=== PATIENT | female | born 1970 | race Caucasian/White ===

== ENCOUNTER 2023-07-29 19:43 | Inpatient (IN) | payer MEDICARE, OTHER ==
[~2023-07-29] VITALS: Ht 162.6 cm; Wt 63.3 kg
[2023-07-29] MEDS ORDERED: CARV12.52 PO (21:48)
[2023-07-29] MEDS ORDERED: TICA90TA PO (21:48)
[2023-07-29] MEDS ORDERED: ISOS60TA72 PO (21:48)
[2023-07-29] MEDS ORDERED: ASPI81TA31 PO (21:48)
[2023-07-29] MEDS ORDERED: PANT40TA49 PO (21:48)
[2023-07-29] MEDS ORDERED: SUCR1TAB PO (21:48)
[2023-07-29] MEDS ORDERED: LEVE500T83 PO (21:48)
[2023-07-29] MEDS ORDERED: DOCU100T2 PO (21:48)
[2023-07-29] MEDS ORDERED: ESCI20TA44 PO (21:48)
[2023-07-29] MEDS ORDERED: IV NORMAL SALINE 1000 ML BAG IV ONE (22:30)
[2023-07-29 22:49] LABS: BASOPHILS # (AUTO) 0.1 K/UL (0.0-0.2); EOSINOPHILS # (AUTO) 0.1 K/uL (0.0-0.7); EOSINOPHILS % (AUTO) 2.4 % (0.0-7.0); HEMATOCRIT 30.2 % (31.2-41.9); HEMOGLOBIN 9.8 g/dL (10.9-14.3); LYMPHOCYTES # (AUTO) 0.9 K/uL (0.8-4.8); LYMPHOCYTES % (AUTO) 23.9 % (20.5-51.5); MEAN CORPUSCULAR HEMOGLOBIN 31.2 uug (24.7-32.8); MEAN CORPUSCULAR HGB CONC 32 g/dL (32.3-35.6); MEAN CORPUSCULAR VOLUME 96.3 fL (75.5-95.3); MONOCYTES # (AUTO) 0.3 K/uL (0.1-1.30); MONOCYTES % (AUTO) 7.7 % (0.0-11.0); NEUTROPHILS # (AUTO) 2.3 K/uL (1.8-8.9); PLATELET COUNT (AUTO) 273 K/uL (179-408); RED BLOOD CELL COUNT(AUTO) 3.14 MIL/uL (3.63-4.92); RED CELL DISTRIBUTION WIDTH 16.7 % (12.3-17.7); WHITE BLOOD COUNT (AUTO) 3.7 K/uL (3.8-11.8)
[2023-07-29 22:51] LABS: DIFFERENTIAL COMMENT 1
[2023-07-29 23:09] LABS: ALANINE AMINOTRANSFERASE 18 U/L (14-59); ALBUMIN 3.1 g/dL (3.4-5.0); ALKALINE PHOSPHATASE 133 U/L (50-136); ASPARTATE AMINOTRANSFERASE 13 U/L (15-37); BILIRUBIN,TOTAL 0.3 mg/dL (0.2-1.0); CALCIUM 9.7 mg/dL (8.5-10.1); CARBON DIOXIDE 26 mmol/L (21-32); CHLORIDE 96 mmol/L (98-107); CREATININE 5.1 mg/dL (0.6-1.3); NT-PRO BNP 4673 pg/mL (0-125); SODIUM SERUM 131 mmol/L (136-145); TOTAL PROTEIN, SERUM 7.1 g/dL (6.4-8.2); UREA NITROGEN, BLOOD 30 mg/dL (7-18)
[2023-07-29 23:12] LABS: POTASSIUM 6.3 mmol/L (3.5-5.1)
[2023-07-29 23:13] LABS: ACETAMINOPHEN < 2.0 ug/mL (10-30); GLUCOSE 435 mg/dL (74-106)
[2023-07-29 23:14] LABS: AMMONIA < 10 umol/L (11-32)
[2023-07-29 23:18] LABS: ACETONE, SERUM TRACE (NEGATIVE)
[2023-07-30] MEDS ORDERED: KETOROLAC TROMETHAMINE 30 MG INJ IVP ONE
[2023-07-30] MEDS ORDERED: KETOROLAC TROMETHAMINE 30 MG INJ ONE (00:03)
[2023-07-30] MEDS ORDERED: CALCIUM GLUCONATE 1 GM/10 ML VIAL IV ONE (00:13)
[2023-07-30] MEDS ORDERED: LORAZEPAM 2 MG/1 ML VIAL ONE (00:13)
[2023-07-30] MEDS ORDERED: SODIUM BICARBONATE 8.4% 50 MEQ/50 ML DISP.SYRIN IV ONE ×2 (00:13→00:15)
[2023-07-30] MEDS ORDERED: CALCIUM GLUCONATE IV 1 GM in IV DEXTROSE 5% 50 ML IV ONE (00:15)
[2023-07-30] MEDS ORDERED: SODIUM POLYSTYRENE SULFONATE 15 G/60 ML LIQUID UDC PO ONE (00:15)
[2023-07-30] MEDS ORDERED: INSULIN REGULAR, HUMAN 300 UNIT/3 ML VIAL IV ONE (00:15)
[2023-07-30] MEDS ORDERED: LORAZEPAM 2 MG/1 ML VIAL IV ONE (00:15)
[2023-07-30] MEDS ORDERED: INSULIN REGULAR, HUMAN 300 UNIT/3 ML VIAL ONE ×2 (00:49→00:50)
[2023-07-30] MEDS ORDERED: SODIUM POLYSTYRENE SULFONATE 15 G/60 ML LIQUID UDC ONE (00:49)
[2023-07-30] MEDS ORDERED: MAGNESIUM HYDROXIDE 30 ML LIQUID UDC PO PRN (01:45)
[2023-07-30] MEDS ORDERED: REMEDY ESSENTIAL ZINC PASTE 113 GM TP PRN (01:45)
[2023-07-30] MEDS ORDERED: DEXTROSE 50% 50 ML DISP.SYRIN IV PRN (01:45)
[2023-07-30 05:10] VITALS: BP 157/69; TEMP 97.4; O2SAT 93
[2023-07-30] MEDS: PANTOPRAZOLE SODIUM 40 MG TABLET.DR PO SCH (06:58)
[2023-07-30] MEDS: BLOOD SUGAR DIAGNOSTIC 1 EACH STRIP VI SCH ×4 (06:58→21:17)
[2023-07-30] MEDS: HEPARIN SODIUM,PORCINE 5,000 UNITS/ML VIAL SQ SCH ×2 (09:28→21:09)
[2023-07-30] MEDS ORDERED: ISOS30TA86 PO (09:38)
[2023-07-30 09:39] LABS: BASOPHILS % (AUTO) 1.5 % (0.0-2.0); EOSINOPHILS # (AUTO) 0.1 K/uL (0.0-0.7); EOSINOPHILS % (AUTO) 3.3 % (0.0-7.0); HEMATOCRIT 29.1 % (31.2-41.9); HEMOGLOBIN 9.3 g/dL (10.9-14.3); LYMPHOCYTES % (AUTO) 34.2 % (20.5-51.5); MEAN CORPUSCULAR HEMOGLOBIN 30.7 uug (24.7-32.8); MEAN CORPUSCULAR HGB CONC 32 g/dL (32.3-35.6); MEAN CORPUSCULAR VOLUME 96.4 fL (75.5-95.3); MONOCYTES # (AUTO) 0.3 K/uL (0.1-1.30); NEUTROPHILS # (AUTO) 1.5 K/uL (1.8-8.9); PLATELET COUNT (AUTO) 271 K/uL (179-408); RED BLOOD CELL COUNT(AUTO) 3.02 MIL/uL (3.63-4.92); RED CELL DISTRIBUTION WIDTH 17.1 % (12.3-17.7)
[2023-07-30 09:50] LABS: DIFFERENTIAL COMMENT 1
[2023-07-30 10:01] LABS: ALBUMIN 2.9 g/dL (3.4-5.0); BILIRUBIN,DIRECT 0.1 mg/dL (0.0-0.2); BILIRUBIN,TOTAL 0.3 mg/dL (0.2-1.0); CALCIUM 9.7 mg/dL (8.5-10.1); CREATININE 5.7 mg/dL (0.6-1.3); MAGNESIUM 2.5 mg/dL (1.8-2.4); PHOSPHOROUS 7.3 mg/dL (2.5-4.9); TOTAL PROTEIN, SERUM 6.6 g/dL (6.4-8.2)
[2023-07-30 11:11] LABS: POTASSIUM 6.4 mmol/L (3.5-5.1)
[2023-07-30 11:29] VITALS: BP 180/90; TEMP 98.6; O2SAT 99
[2023-07-30] MEDS: INSULIN REGULAR, HUMAN 300 UNIT/3 ML VIAL SQ PRN (12:11)
[2023-07-30] MEDS ORDERED: Medication Not On Formulary EA (Levetiracetam 500 MG) PO SCH (12:15)
[2023-07-30] MEDS: CARVEDILOL 12.5 MG TABLET PO SCH ×2 (12:56→17:30)
[2023-07-30] MEDS: ISOSORBIDE MONONITRATE 30 MG TAB.SR.24H PO SCH (12:56)
[2023-07-30] MEDS: levETIRAcetam 500 MG TABLET PO SCH ×2 (13:35→21:07)
[2023-07-30] MEDS: DOCUSATE SODIUM 100 MG CAPSULE PO SCH (13:35)
[2023-07-30 13:40] VITALS: BP 144/66; TEMP 98.1; O2SAT 98
[2023-07-30 14:40] VITALS: BP 153/70; TEMP 97.5; O2SAT 98
[2023-07-30 16:06] VITALS: BP 146/73; TEMP 97.6; O2SAT 98
[2023-07-30] MEDS: SUCRALFATE 1 G TABLET PO SCH (17:31)
[2023-07-30 19:15] VITALS: BP 130/62; TEMP 98.3; O2SAT 97
[2023-07-30] MEDS: INSULIN REGULAR, HUMAN 300 UNITS/3 ML VIAL SQ PRN (21:21)
[2023-07-31 00:30] VITALS: BP 125/60; TEMP 98.8; O2SAT 97
[2023-07-31 04:00] VITALS: BP 156/71; TEMP 97.9; O2SAT 94
[2023-07-31] MEDS: PANTOPRAZOLE SODIUM 40 MG TABLET.DR PO SCH (06:31)
[2023-07-31] MEDS: SUCRALFATE 1 G TABLET PO SCH ×3 (06:31→17:05)
[2023-07-31] MEDS: BLOOD SUGAR DIAGNOSTIC 1 EACH STRIP VI SCH ×7 (06:37→21:06)
[2023-07-31] MEDS: INSULIN REGULAR, HUMAN 300 UNIT/3 ML VIAL SQ PRN ×3 (07:45→17:08)
[2023-07-31 08:11] LABS: HEPATITIS B SURFACE AB, QUAL Reactive (.); HEPATITIS B SURFACE AG Negative (Negative)
[2023-07-31] MEDS ORDERED: Medication Not On Formulary EA (Docusate Sodium 100 MG) PO SCH (09:00)
[2023-07-31] MEDS: HEPARIN SODIUM,PORCINE 5,000 UNITS/ML VIAL SQ SCH ×2 (09:07→20:57)
[2023-07-31] MEDS: levETIRAcetam 500 MG TABLET PO SCH ×2 (09:08→20:58)
[2023-07-31] MEDS: DOCUSATE SODIUM 100 MG CAPSULE PO SCH (09:08)
[2023-07-31] MEDS: CARVEDILOL 12.5 MG TABLET PO SCH ×2 (09:13→17:05)
[2023-07-31] MEDS: ESCITALOPRAM OXALATE 10 MG TABLET PO SCH (09:14)
[2023-07-31] MEDS: ISOSORBIDE MONONITRATE 30 MG TAB.SR.24H PO SCH (09:14)
[2023-07-31 09:16] LABS: BASOPHILS # (AUTO) 0.1 K/UL (0.0-0.2); BASOPHILS % (AUTO) 2.4 % (0.0-2.0); EOSINOPHILS # (AUTO) 0.1 K/uL (0.0-0.7); EOSINOPHILS % (AUTO) 2.9 % (0.0-7.0); HEMATOCRIT 28.5 % (31.2-41.9); HEMOGLOBIN 9.1 g/dL (10.9-14.3); LYMPHOCYTES # (AUTO) 0.9 K/uL (0.8-4.8); LYMPHOCYTES % (AUTO) 33.2 % (20.5-51.5); MEAN CORPUSCULAR HEMOGLOBIN 30.9 uug (24.7-32.8); MEAN CORPUSCULAR HGB CONC 32 g/dL (32.3-35.6); MEAN CORPUSCULAR VOLUME 96.7 fL (75.5-95.3); MONOCYTES # (AUTO) 0.3 K/uL (0.1-1.30); MONOCYTES % (AUTO) 11.2 % (0.0-11.0); NEUTROPHILS # (AUTO) 1.4 K/uL (1.8-8.9); NEUTROPHILS % (AUTO) 50.3 % (38.5-71.5); PLATELET COUNT (AUTO) 245 K/uL (179-408); RED BLOOD CELL COUNT(AUTO) 2.95 MIL/uL (3.63-4.92); RED CELL DISTRIBUTION WIDTH 16.6 % (12.3-17.7); WHITE BLOOD COUNT (AUTO) 2.7 K/uL (3.8-11.8)
[2023-07-31 09:31] LABS: CALCIUM 9.2 mg/dL (8.5-10.1); CREATININE 4.7 mg/dL (0.6-1.3); MAGNESIUM 2.4 mg/dL (1.8-2.4); PHOSPHOROUS 6.2 mg/dL (2.5-4.9); POTASSIUM 5.3 mmol/L (3.5-5.1)
[2023-07-31 09:37] LABS: DIFFERENTIAL COMMENT 1
[2023-07-31 11:31] VITALS: BP 117/60; TEMP 98.5; O2SAT 95
[2023-07-31] MEDS: ALPRAZOLAM 0.25 MG TABLET PO PRN ×2 (11:33→21:53)
[2023-07-31 15:34] VITALS: BP 127/60; TEMP 98.4; O2SAT 95
[2023-07-31 20:00] VITALS: BP 132/60; TEMP 98; O2SAT 96
[2023-07-31] MEDS: INSULIN REGULAR, HUMAN 300 UNITS/3 ML VIAL SQ PRN (21:08)
[2023-08-01 04:00] VITALS: BP 144/68; TEMP 98.2; O2SAT 97
[2023-08-01] MEDS: ACETAMINOPHEN 325 MG TABLET PO PRN ×2 (04:16→21:15)
[2023-08-01] MEDS: BLOOD SUGAR DIAGNOSTIC 1 EACH STRIP VI SCH ×5 (06:13→21:16)
[2023-08-01] MEDS: INSULIN REGULAR, HUMAN 300 UNIT/3 ML VIAL SQ PRN ×2 (06:14→16:58)
[2023-08-01] MEDS: PANTOPRAZOLE SODIUM 40 MG TABLET.DR PO SCH (06:27)
[2023-08-01] MEDS ORDERED: ONDANSETRON HCL 4 MG TABLET PO PRN (06:30)
[2023-08-01 07:36] LABS: BASOPHILS # (AUTO) 0.1 K/UL (0.0-0.2); EOSINOPHILS # (AUTO) 0.1 K/uL (0.0-0.7); EOSINOPHILS % (AUTO) 3.1 % (0.0-7.0); HEMATOCRIT 29.9 % (31.2-41.9); HEMOGLOBIN 9.5 g/dL (10.9-14.3); LYMPHOCYTES # (AUTO) 0.6 K/uL (0.8-4.8); LYMPHOCYTES % (AUTO) 21.3 % (20.5-51.5); MEAN CORPUSCULAR HEMOGLOBIN 30.9 uug (24.7-32.8); MEAN CORPUSCULAR HGB CONC 32 g/dL (32.3-35.6); MEAN CORPUSCULAR VOLUME 97.7 fL (75.5-95.3); MONOCYTES # (AUTO) 0.3 K/uL (0.1-1.30); MONOCYTES % (AUTO) 8.7 % (0.0-11.0); NEUTROPHILS # (AUTO) 1.9 K/uL (1.8-8.9); NEUTROPHILS % (AUTO) 64.9 % (38.5-71.5); PLATELET COUNT (AUTO) 211 K/uL (179-408); RED BLOOD CELL COUNT(AUTO) 3.06 MIL/uL (3.63-4.92); RED CELL DISTRIBUTION WIDTH 16.7 % (12.3-17.7)
[2023-08-01 07:49] LABS: DIFFERENTIAL COMMENT 1
[2023-08-01 07:54] LABS: CALCIUM 9.3 mg/dL (8.5-10.1); CREATININE 5.8 mg/dL (0.6-1.3); MAGNESIUM 2.5 mg/dL (1.8-2.4); PHOSPHOROUS 6.2 mg/dL (2.5-4.9); POTASSIUM 5.8 mmol/L (3.5-5.1)
[2023-08-01 08:06] LABS: HEPATITIS B CORE AB, IgM Negative (Negative); HEPATITIS B CORE AB, TOTAL Negative (Negative); HEPATITIS B SURFACE AB, QUAL Reactive (.); HEPATITIS B SURFACE AG Negative (Negative); HEPATITIS C VIRUS ANTIBODY Non Reactive (Non Reactive)
[2023-08-01] MEDS: SUCRALFATE 1 G TABLET PO SCH ×3 (08:58→16:43)
[2023-08-01] MEDS: ESCITALOPRAM OXALATE 10 MG TABLET PO SCH (08:58)
[2023-08-01] MEDS: DOCUSATE SODIUM 100 MG CAPSULE PO SCH (08:58)
[2023-08-01] MEDS: levETIRAcetam 500 MG TABLET PO SCH ×2 (08:58→21:15)
[2023-08-01] MEDS: HEPARIN SODIUM,PORCINE 5,000 UNITS/ML VIAL SQ SCH ×2 (09:00→21:16)
[2023-08-01] MEDS: CARVEDILOL 12.5 MG TABLET PO SCH ×2 (09:01→16:43)
[2023-08-01] MEDS: ISOSORBIDE MONONITRATE 30 MG TAB.SR.24H PO SCH (09:01)
[2023-08-01 09:11] VITALS: BP 183/79; TEMP 98; O2SAT 94
[2023-08-01] MEDS: diphenhydrAMINE 50 MG/1 ML VIAL IV PRN ×2 (09:49→22:37)
[2023-08-01 11:42] VITALS: BP 135/70; TEMP 97.6; O2SAT 96
[2023-08-01] MEDS: ONDANSETRON 4 MG/2 ML VIAL IV PRN (14:48)
[2023-08-01 20:30] VITALS: BP 174/75; TEMP 98.3; O2SAT 94
[2023-08-01] MEDS: INSULIN GLARGINE,HUM 300 UNITS/3 ML CARTRIDGE SQ SCH (21:15)
[2023-08-02 00:12] VITALS: BP 157/76; TEMP 98.2; O2SAT 94
[2023-08-02 04:20] VITALS: BP 169/68; TEMP 98.4; O2SAT 91
[2023-08-02] MEDS: PANTOPRAZOLE SODIUM 40 MG TABLET.DR PO SCH (06:34)
[2023-08-02] MEDS: SUCRALFATE 1 G TABLET PO SCH ×3 (06:34→16:29)
[2023-08-02] MEDS: BLOOD SUGAR DIAGNOSTIC 1 EACH STRIP VI SCH ×4 (06:35→21:09)
[2023-08-02 08:00] VITALS: BP 178/78; TEMP 98.4; O2SAT 96
[2023-08-02] MEDS: ESCITALOPRAM OXALATE 10 MG TABLET PO SCH (08:29)
[2023-08-02] MEDS: ISOSORBIDE MONONITRATE 30 MG TAB.SR.24H PO SCH (08:30)
[2023-08-02] MEDS: levETIRAcetam 500 MG TABLET PO SCH ×2 (08:30→20:54)
[2023-08-02] MEDS: CARVEDILOL 12.5 MG TABLET PO SCH ×2 (08:30→16:33)
[2023-08-02] MEDS: HEPARIN SODIUM,PORCINE 5,000 UNITS/ML VIAL SQ SCH ×2 (08:31→20:58)
[2023-08-02] MEDS: DOCUSATE SODIUM 100 MG CAPSULE PO SCH (08:31)
[2023-08-02] MEDS: INSULIN REGULAR, HUMAN 300 UNIT/3 ML VIAL SQ PRN ×2 (08:33→11:16)
[2023-08-02] MEDS ORDERED: hydrALAZINE HCL 20 MG/1 ML VIAL IV PRN (10:15)
[2023-08-02] MEDS: AMLODIPINE 5 MG TABLET PO SCH (10:57)
[2023-08-02] MEDS: ONDANSETRON 4 MG/2 ML VIAL IV PRN (11:19)
[2023-08-02 11:39] VITALS: BP 160/69; TEMP 98.4; O2SAT 95
[2023-08-02] MEDS: diphenhydrAMINE 50 MG/1 ML VIAL IV PRN ×2 (12:22→21:30)
[2023-08-02 16:26] VITALS: BP 138/60; TEMP 97.5; O2SAT 95
[2023-08-02] MEDS: ALPRAZOLAM 0.25 MG TABLET PO PRN (16:51)
[2023-08-02 20:35] VITALS: BP 141/64; TEMP 98.1; O2SAT 95
[2023-08-02] MEDS: INSULIN GLARGINE,HUM 300 UNITS/3 ML CARTRIDGE SQ SCH (21:00)
[2023-08-03 00:54] VITALS: BP 108/72; TEMP 98.6; O2SAT 96
[2023-08-03 04:50] VITALS: BP 181/72; TEMP 98.9; O2SAT 94
[2023-08-03] MEDS: PANTOPRAZOLE SODIUM 40 MG TABLET.DR PO SCH (06:34)
[2023-08-03] MEDS: SUCRALFATE 1 G TABLET PO SCH ×3 (06:34→16:25)
[2023-08-03] MEDS: BLOOD SUGAR DIAGNOSTIC 1 EACH STRIP VI SCH ×4 (06:49→20:30)
[2023-08-03 06:55] LABS: BASOPHILS % (AUTO) 1.1 % (0.0-2.0); EOSINOPHILS # (AUTO) 0.1 K/uL (0.0-0.7); EOSINOPHILS % (AUTO) 4.3 % (0.0-7.0); HEMOGLOBIN 9.9 g/dL (10.9-14.3); MEAN CORPUSCULAR HEMOGLOBIN 30.8 uug (24.7-32.8); MEAN CORPUSCULAR HGB CONC 32 g/dL (32.3-35.6); MEAN CORPUSCULAR VOLUME 96.4 fL (75.5-95.3); MONOCYTES # (AUTO) 0.4 K/uL (0.1-1.30); MONOCYTES % (AUTO) 12.2 % (0.0-11.0); NEUTROPHILS # (AUTO) 1.8 K/uL (1.8-8.9); NEUTROPHILS % (AUTO) 53.4 % (38.5-71.5); PLATELET COUNT (AUTO) 193 K/uL (179-408); RED BLOOD CELL COUNT(AUTO) 3.22 MIL/uL (3.63-4.92); RED CELL DISTRIBUTION WIDTH 15.7 % (12.3-17.7); WHITE BLOOD COUNT (AUTO) 3.3 K/uL (3.8-11.8)
[2023-08-03 07:10] LABS: DIFFERENTIAL COMMENT 1
[2023-08-03 07:16] LABS: CALCIUM 9.1 mg/dL (8.5-10.1); CREATININE 6.2 mg/dL (0.6-1.3); MAGNESIUM 2.6 mg/dL (1.8-2.4); PHOSPHOROUS 6.5 mg/dL (2.5-4.9); POTASSIUM 5.4 mmol/L (3.5-5.1)
[2023-08-03] MEDS: INSULIN REGULAR, HUMAN 300 UNIT/3 ML VIAL SQ PRN ×2 (08:08→17:29)
[2023-08-03] MEDS: DOCUSATE SODIUM 100 MG CAPSULE PO SCH (08:34)
[2023-08-03] MEDS: ESCITALOPRAM OXALATE 10 MG TABLET PO SCH (08:34)
[2023-08-03] MEDS: levETIRAcetam 500 MG TABLET PO SCH ×2 (08:34→20:59)
[2023-08-03] MEDS: HEPARIN SODIUM,PORCINE 5,000 UNITS/ML VIAL SQ SCH ×2 (08:35→21:02)
[2023-08-03] MEDS: AMLODIPINE 5 MG TABLET PO SCH (08:36)
[2023-08-03] MEDS: ISOSORBIDE MONONITRATE 30 MG TAB.SR.24H PO SCH (08:37)
[2023-08-03] MEDS: CARVEDILOL 12.5 MG TABLET PO SCH ×2 (08:37→16:25)
[2023-08-03] MEDS: ONDANSETRON 4 MG/2 ML VIAL IV PRN ×2 (10:28→10:46)
[2023-08-03 12:00] VITALS: BP 118/68; TEMP 97.9; O2SAT 95
[2023-08-03] MEDS ORDERED: INSULIN REGULAR, HUMAN 300 UNITS/3 ML VIAL SQ PRN (14:30)
[2023-08-03 15:46] VITALS: BP 134/66; TEMP 97.3; O2SAT 97
[2023-08-03] MEDS: diphenhydrAMINE 50 MG/1 ML VIAL IV PRN (18:39)
[2023-08-03 20:00] VITALS: BP 134/67; TEMP 98
[2023-08-03] MEDS ORDERED: INSULIN GLARGINE,HUM 300 UNITS/3 ML CARTRIDGE SQ SCH ×2 (21:00)
[2023-08-03] MEDS ORDERED: diphenhydrAMINE 50 MG/1 ML VIAL IV ONE (22:00)
[2023-08-04] VITALS: BP 128/64; TEMP 97.8; O2SAT 96
[2023-08-04] MEDS: SUCRALFATE 1 G TABLET PO SCH ×3 (06:31→16:27)
[2023-08-04] MEDS: PANTOPRAZOLE SODIUM 40 MG TABLET.DR PO SCH (06:33)
[2023-08-04] MEDS: BLOOD SUGAR DIAGNOSTIC 1 EACH STRIP VI SCH ×3 (06:54→16:36)
[2023-08-04 07:12] LABS: BASOPHILS % (AUTO) 1.1 % (0.0-2.0); EOSINOPHILS # (AUTO) 0.2 K/uL (0.0-0.7); EOSINOPHILS % (AUTO) 6.2 % (0.0-7.0); HEMOGLOBIN 9.6 g/dL (10.9-14.3); LYMPHOCYTES # (AUTO) 1.2 K/uL (0.8-4.8); LYMPHOCYTES % (AUTO) 34.3 % (20.5-51.5); MEAN CORPUSCULAR HEMOGLOBIN 30.6 uug (24.7-32.8); MEAN CORPUSCULAR HGB CONC 32 g/dL (32.3-35.6); MEAN CORPUSCULAR VOLUME 94.9 fL (75.5-95.3); MONOCYTES # (AUTO) 0.4 K/uL (0.1-1.30); MONOCYTES % (AUTO) 11.1 % (0.0-11.0); NEUTROPHILS # (AUTO) 1.6 K/uL (1.8-8.9); NEUTROPHILS % (AUTO) 47.3 % (38.5-71.5); PLATELET COUNT (AUTO) 181 K/uL (179-408); RED BLOOD CELL COUNT(AUTO) 3.16 MIL/uL (3.63-4.92); RED CELL DISTRIBUTION WIDTH 15.9 % (12.3-17.7); WHITE BLOOD COUNT (AUTO) 3.4 K/uL (3.8-11.8)
[2023-08-04 07:17] LABS: DIFFERENTIAL COMMENT 1
[2023-08-04 07:26] LABS: CALCIUM 9.5 mg/dL (8.5-10.1); CREATININE 7.3 mg/dL (0.6-1.3); MAGNESIUM 2.9 mg/dL (1.8-2.4); PHOSPHOROUS 6.9 mg/dL (2.5-4.9); POTASSIUM 4.9 mmol/L (3.5-5.1)
[2023-08-04] MEDS: HEPARIN SODIUM,PORCINE 5,000 UNITS/ML VIAL SQ SCH (08:56)
[2023-08-04] MEDS: ESCITALOPRAM OXALATE 10 MG TABLET PO SCH (09:00)
[2023-08-04] MEDS: DOCUSATE SODIUM 100 MG CAPSULE PO SCH (09:00)
[2023-08-04] MEDS: CARVEDILOL 12.5 MG TABLET PO SCH ×2 (09:01→16:28)
[2023-08-04] MEDS: ISOSORBIDE MONONITRATE 30 MG TAB.SR.24H PO SCH (09:01)
[2023-08-04] MEDS: AMLODIPINE 5 MG TABLET PO SCH (09:02)
[2023-08-04] MEDS: levETIRAcetam 500 MG TABLET PO SCH (09:02)
[2023-08-04] MEDS: ACETAMINOPHEN 325 MG TABLET PO PRN (10:13)
[2023-08-04 11:34] VITALS: BP 170/78; TEMP 98.9; O2SAT 94
[2023-08-04] MEDS: diphenhydrAMINE 50 MG/1 ML VIAL IV PRN (12:54)
[2023-08-04] MEDS ORDERED: LIDOCAINE/PRILOCAINE 5 GM CREAM.GM. TP PRN (13:15)
[2023-08-04] MEDS ORDERED: INSU100V7 SQ (14:57)
[2023-08-04] MEDS ORDERED: INSU100V SQ ×2 (15:03→15:05)
[2023-08-04 15:37] VITALS: BP 149/81; TEMP 98.2; O2SAT 96
[2023-08-04 16:28] VITALS: BP 149/81
[2023-08-04] MEDS: INSULIN REGULAR, HUMAN 300 UNIT/3 ML VIAL SQ PRN (16:47)
[2023-08-04] MEDS ORDERED: INSULIN GLARGINE,HUM 300 UNITS/3 ML CARTRIDGE SQ SCH (21:00)
== END 2023-08-04 19:45 | DRG 640 ==
LOC: ER 19:45 → TELE3 07-30 00:26 → MEDSURG3 08-04 09:30
PROVIDERS: ADMIT Student in an Organized Health Care Education/Training Program; ATTEND Nurse Practitioner Family
PROC: 5A1D70Z Performance of Urinary Filtration, Intermittent, Less than 6 Hours Per Day (ICD-10-PCS; principal; 2023-07-30)
DX: E87.70 Fluid overload, unspecified (principal); G93.41 Metabolic encephalopathy; N18.6 End stage renal disease; I12.0 Hypertensive chronic kidney disease with stage 5 chronic kidney disease or end stage renal disease; E87.5 Hyperkalemia; E10.22 Type 1 diabetes mellitus with diabetic chronic kidney disease; E10.65 Type 1 diabetes mellitus with hyperglycemia; G40.909 Epilepsy, unspecified, not intractable, without status epilepticus; Z91.158 Patient's noncompliance with renal dialysis for other reason; D63.1 Anemia in chronic kidney disease; N25.0 Renal osteodystrophy; E03.9 Hypothyroidism, unspecified; S06.30AD Unspecified focal traumatic brain injury with loss of consciousness status unknown, subsequent encounter; X58.XXXD Exposure to other specified factors, subsequent encounter; Z98.2 Presence of cerebrospinal fluid drainage device; Z79.01 Long term (current) use of anticoagulants; I25.10 Atherosclerotic heart disease of native coronary artery without angina pectoris; Z99.2 Dependence on renal dialysis; Z79.4 Long term (current) use of insulin; Z98.890 Other specified postprocedural states; Z88.1 Allergy status to other antibiotic agents; G93.89 Other specified disorders of brain
CPT/HCPCS: 36415; 70450; 71045; 83605; 83735; 84100; 84484; 85025; 86704; 86705; 86706; 86803; 87040; 87340; 90937; G0378; J0360; J0610; J1200; J1644; J1815; J1885; J2060; J2405; J3490; J7040; Q0162

== ENCOUNTER 2024-07-20 17:27 | Emergency (ER) | payer MEDICARE, OTHER ==
[~2024-07-20] VITALS: Ht 160 cm; Wt 53.5 kg
[~2024-07-20 17:27] MED LIST: ASPI81TA31 PO; CARV12.52 PO; DOCU100T2 PO; ESCI20TA44 PO; INSU100V SQ; INSU100V7 SQ; ISOS30TA86 PO; LEVE500T83 PO; PANT40TA49 PO; SUCR1TAB PO; TICA90TA PO
[2024-07-20] MEDS ORDERED: hydrALAZINE HCL 20 MG/1 ML VIAL ONE (18:00)
[2024-07-20 18:01] LABS: BASOPHILS % (AUTO) 1.1 % (0.0-2.0); EOSINOPHILS # (AUTO) 0.1 K/uL (0.0-0.7); HEMATOCRIT 34.5 % (31.2-41.9); HEMOGLOBIN 11.1 g/dL (10.9-14.3); LYMPHOCYTES # (AUTO) 0.8 K/uL (0.8-4.8); LYMPHOCYTES % (AUTO) 28.6 % (20.5-51.5); MEAN CORPUSCULAR HEMOGLOBIN 32.3 uug (24.7-32.8); MEAN CORPUSCULAR HGB CONC 32 g/dL (32.3-35.6); MONOCYTES # (AUTO) 0.3 K/uL (0.1-1.30); MONOCYTES % (AUTO) 10.6 % (0.0-11.0); NEUTROPHILS # (AUTO) 1.6 K/uL (1.8-8.9); NEUTROPHILS % (AUTO) 57.7 % (38.5-71.5); PLATELET COUNT (AUTO) 252 K/uL (179-408); RED BLOOD CELL COUNT(AUTO) 3.45 MIL/uL (3.63-4.92); RED CELL DISTRIBUTION WIDTH 20.3 % (12.3-17.7); WHITE BLOOD COUNT (AUTO) 2.8 K/uL (3.8-11.8)
[2024-07-20 18:09] LABS: DIFFERENTIAL COMMENT 1
[2024-07-20 18:10] LABS: AMMONIA 21 umol/L (11-32); ETHANOL < 3 MG/DL (0-10)
[2024-07-20] MEDS: hydrALAZINE HCL 20 MG/1 ML VIAL IV ONE (18:16)
[2024-07-20] MEDS ORDERED: levETIRAcetam 500 MG/5 ML VIAL IV ONE (18:22)
[2024-07-20 18:33] LABS: ALANINE AMINOTRANSFERASE 36 U/L (14-59); ALBUMIN 2.9 g/dL (3.4-5.0); ALKALINE PHOSPHATASE 306 U/L (50-136); ASPARTATE AMINOTRANSFERASE 29 U/L (15-37); BILIRUBIN,DIRECT 0.2 mg/dL (0.0-0.2); BILIRUBIN,TOTAL 0.3 mg/dL (0.2-1.0); CALCIUM 9.1 mg/dL (8.5-10.1); CARBON DIOXIDE 31 mmol/L (21-32); CHLORIDE 98 mmol/L (98-107); GLUCOSE 191 mg/dL (74-106); POTASSIUM 4.4 mmol/L (3.5-5.1); SODIUM SERUM 136 mmol/L (136-145); TOTAL PROTEIN, SERUM 7.1 g/dL (6.4-8.2); UREA NITROGEN, BLOOD 15 mg/dL (7-18)
[2024-07-20 18:35] LABS: ACETAMINOPHEN < 2.0 ug/mL (10-30)
[2024-07-20 18:37] LABS: THYROID STIMULATING HORMONE 68.531 mIU/mL (0.358-3.740)
[2024-07-20] MEDS ORDERED: CEFTRIAXONE /D5W 50ML IVPB **ER PYXIS IV ONE (18:38)
[2024-07-20] MEDS: CEFTRIAXONE 1 G in IV DEXTROSE 5% 50 ML IV ONE (18:43)
[2024-07-20] MEDS ORDERED: VANCOMYCIN IV 1,000 MG in IV DEXTROSE 5% 250 ML IV ONE (18:45)
[2024-07-20] MEDS: levETIRAcetam IV 1,000 MG in IV DEXTROSE 5% 100 ML IV ONE (18:57)
[2024-07-20] MEDS ORDERED: CARVEDILOL 12.5 MG TABLET PO SCH (19:00)
[2024-07-20] MEDS ORDERED: LEVOTHYROXINE SODIUM 100 MCG VIAL IV SCH (19:15)
[2024-07-20] MEDS ORDERED: LORAZEPAM 2 MG/1 ML VIAL IV PRN (19:15)
[2024-07-20] MEDS ORDERED: ONDANSETRON 4 MG/2 ML VIAL IV PRN (19:15)
[2024-07-20] MEDS ORDERED: hydrALAZINE HCL 25 MG TABLET PO SCH (19:15)
[2024-07-20] MEDS ORDERED: ACETAMINOPHEN 325 MG TABLET PO PRN (19:15)
[2024-07-20] MEDS ORDERED: ENALAPRILAT DIHYDRATE 1.25 MG/1 ML VIAL IV PRN (19:15)
[2024-07-20 19:20] VITALS: BP 214/87; TEMP 98.8; O2SAT 99
[2024-07-20] MEDS: IV NORMAL SALINE 500 ML BAG IV ONE (19:27)
[2024-07-20] MEDS ORDERED: levETIRAcetam IV 500 MG in IV DEXTROSE 5% 100 ML IV SCH (21:00)
[2024-07-21] MEDS ORDERED: PANTOPRAZOLE SODIUM 40 MG TABLET.DR PO SCH (07:00)
[2024-07-21] MEDS ORDERED: Medication Not On Formulary EA (Docusate Sodium 100 MG) PO SCH (09:00)
[2024-07-21] MEDS ORDERED: ISOSORBIDE MONONITRATE 30 MG TAB.SR.24H PO SCH (09:00)
== END 2024-07-20 19:20 | disposition left against medical advice (07) ==
LOC: ER 17:27
DX: G93.41 Metabolic encephalopathy (principal); E88.09 Other disorders of plasma-protein metabolism, not elsewhere classified; D75.89 Other specified diseases of blood and blood-forming organs; G40.909 Epilepsy, unspecified, not intractable, without status epilepticus; I13.11 Hypertensive heart and chronic kidney disease without heart failure, with stage 5 chronic kidney disease, or end stage renal disease; I16.1 Hypertensive emergency; N18.6 End stage renal disease; D72.819 Decreased white blood cell count, unspecified; R51.9 Headache, unspecified; E11.22 Type 2 diabetes mellitus with diabetic chronic kidney disease; Z79.02 Long term (current) use of antithrombotics/antiplatelets; Z79.4 Long term (current) use of insulin; Z79.82 Long term (current) use of aspirin; Z79.899 Other long term (current) drug therapy; Z99.2 Dependence on renal dialysis; Z88.1 Allergy status to other antibiotic agents; Z88.2 Allergy status to sulfonamides
CPT/HCPCS: 80076; 80048; 82140; 82962; 84439; 84443; 85025; 85730; 87040 ×2; 84484; 36415; 71045; 70450; 93005; 99291; 96365; 96375 ×2; 83605; 84481; 80299; 80320; J0696; J0360; J1953; A4606; A4663; G0480